=== PATIENT | female | born 1985 | race Caucasian/White ===

== ENCOUNTER 2022-06-30 09:47 | Emergency (ER) | payer OTHER, SELFPAY ==
[2022-06-30 09:48] VITALS: BP 124/103; PULSE 101; RESP 16; TEMP 36.2; O2SAT 100; BMI 29.2
--- NOTE | 2022-06-30 10:19 | EDS_ITS ---
HPI History of Present Illness Chief Complaint: Numb/Ting Detail of Chief Complaint: Right facial tingling Informant: patient Onset/Context/Timing Onset: Days Context: Gradual Onset Timing: Continuous Current Severity: Mild Maximum Severity: Mild Narrative Narrative: 33-year-old female no seen past medical or surgical history. States she has had right facial tingling for the last 3 to 4 days. Began on Wednesday. Denies headache. Denies trauma. Denies any weakness or numbness to her upper or lower extremities. No visual changes. No facial droop. No other neurological symptoms. Prior similar symptoms: No Recent Illness/Hospitalization: No PFSH PFSH Medical History no medical history no medical history Allergy/AdvReac Type Severity Reaction Status Date / Time cephalexin monohydrate Allergy Hives Verified 06/30/22 09:48 [From Keflex] sulfamethoxazole Allergy Hives Verified 06/30/22 09:48 [From Bactrim] trimethoprim [From Bactrim] Allergy Hives Verified 06/30/22 09:48 Surgical History no surgical history no surgical history Social History Smoking Status: Current some day smoker tobacco type: cigarettes ROS ROS ED ROS Narrative Denies recent illness. Review of Systems ROS Unobtainable: Denies due to encephalopathy Constitutional Constitutional ED: Denies chills or fever(s) Eyes Eyes: Denies blurry vision ENT ENT ED: Denies ear pain Cardiovascular Cardiovascular: Denies chest pain Respiratory/Chest Respiratory/Chest: Denies cough or dyspnea Gastrointestinal Gastrointestinal: Denies abdominal pain Genitourinary Genitourinary ED: Denies dysuria or hematuria Musculoskeletal Musculoskeletal: Denies arthralgias Integumentary Denies abscess Neurologic Neurologic: Reports paresthesias; Denies headache(s) Psychiatric Psychiatric: Denies anxiety Endocrine Endocrinology: Denies cold intolerance Hematologic/Lymphatic Hematologic/Lymphatic: Reports none Allergic/Immunologic Allergic/Immunologic ED: Denies mouth swelling or tongue swelling EXAM Physical Exam Narrative Exam Narrative: Well-appearing 37-year-old female no acute distress. Vital signs stable afebrile. H EENT exam unremarkable. Give dry reactive light his motions are intact. Tongue midline. No facial droop. She has sensation to the right and left side of her forehead and face and she states that subjectively decreased on the right. There is no facial droop. She can open and close either eye without any difficulty. There are no objective neurological findings involving the motor nerves of her face. Neck nontender. Lungs are clear. Heart regular rhythm. Abdomen soft nontender. Moving all 4 extremities. Back nontender. Neurologic exam normal other than subjective decreased sensation right side of her face. No droop. NIH score is 0 to at most 1. Const Vital Signs: 06/30/22 09:48 Temperature 97.2 F L Temperature Source Temporal Pulse Rate 101 H Respiratory Rate 16 Blood Pressure 124/103 H Blood Pressure Mean 110 Pulse Ox 100 Oxygen Delivery Method Room Air Positive well nourished and well developed; Negative for obese, cachectic, contractures or unkempt General Appearance ED: well developed and NAD; Negative for unkempt, cachectic, contractures, cyanotic or diaphoretic Nutritional Appearance: Negative for cachectic or obese HEENT Reports moist mucous membranes Negative for trauma or tenderness Eyes PERRL and EOMs intact bilaterally General Eye ED: Negative for pale conjunctiva or scleral icterus Neck no lymphadenopathy, supple and no JVD General: Negative for tenderness Lymph Lymphatic: Negative for other Chest Wall inspection of chest normal and palpation of chest normal Chest: Negative for other Resp normal respiratory effort and clear to auscultation bilaterally Effort and Inspection: Negative for retractions Auscultation: Negative for rales or rhonchi Cardio regular rate, regular rhythm, S1 normal heart sound, S2 normal heart sound and no murmurs Palpation: Negative for palpable S3 Rate: Negative for bradycardia Rhythm: Negative for abnormal rhythm GI normal to inspection, nondistended, normoactive bowel sounds, non-tender, non- distended and no masses Inspection: Negative for abdominal distention Auscultation: normoactive bowel sounds Palpation: soft; Negative for tender or guarding Back/Spine no CVA tenderness General Back: Negative for CVA tenderness Cervical Spine: Negative for cervical spine tenderness Thoracic Spine / Upper Back: Negative for thoracic spinal tenderness Lumbar Spine / Lower Back: Negative for lumbar spinal tenderness Extremity normal to inspection Neuro oriented x3, CN's II-XII intact bilaterally and no sensory deficits noted Neuro Narrative: Subjective decrease sensation right forehead and face. She objectively is able to feel touch. There is no droop or motor loss. Sensorium / Orientation: alert; Negative for orientation impaired, lethargic or stuporous Motor Exam: strength 5/5 throughout; Negative for general weakness or strength abnormal Psych mental status grossly normal Appearance: Negative for unkempt Attitude: No agitated Mood & Affect: Negative for depressed, anxious or tearful Skin no rashes or lesions noted and no wounds Lesions: No lesion noted Rashes: No rashes noted Trauma: Negative for abrasion Wounds: Negative for wounds noted MDM MDM MDM Narrative Medical decision making narrative: 37-year-old female subjective decrease sensation right forehead and face. Exam completely normal otherwise. She and I discussed the CAT scan which clinic I think will be normal. I did give her the option if she wanted me to obtain and she deferred at this time. She will given a primary care physician to follow-up with. Radiography Diagnostic Testing: Discussed with the patient CAT scan of her head which she deferred at this time. Clinically I think it would be normal. Discharge Plan Triage Chief Complaint: Numb/Ting ED Provider: Salvatore Caldeorn Dx/Rx/DC Orders Clinical Impression: Facial paresthesia Instructions: ED Paraesthesias Primary Care Provider: Care Physician,No Primary Referrals: Rafael Yo MD [Med Staff - [employer]] - As soon as possible Care Physician,No Primary [Primary Care Provider] - Activity Restrictions/Additional Instructions: Amputation follow-up with your doctor if not improving return if worse. Your exam currently is normal. Disposition Disposition: Home, Self Care
== END 2022-06-30 10:35 | disposition home or self-care (01) ==
LOC: ED 10:33
PROVIDERS: Emergency Provider Emergency Medicine; Visit Provider Emergency Medicine
DX: R20.2 Paresthesia of skin (principal); F17.210 Nicotine dependence, cigarettes, uncomplicated
CPT/HCPCS: 99282

== ENCOUNTER → 2022-07-01 | Outpatient (CLI) | payer OTHER, SELFPAY ==
--- NOTE | 2022-07-01 14:29 | RAD_ITS ---
STUDY: X-RAY - LUMBAR SPINE REASON FOR EXAM: Female, 37 years old. FACET ARTHROPATHY TECHNIQUE: XR Spine Lumbar 2 or 3 Views COMPARISON: None FINDINGS: Normal lumbar lordosis. There is no substantial scoliosis. There is a normal alignment of the vertebrae. There is L5-S1 endplate spondylosis of the lumbar vertebrae. There is L5-S1 degenerative disc disease with disc space narrowing. There are bilateral tubal ligation clips. The soft tissue structures are unremarkable. RAD/Lumbar Spine 2 or 3 Views IMPRESSION: Degenerative findings at L5-S1. Electronically Signed: Cristhian Murphy MD at 21:21 EST ,
== END | disposition home or self-care (01) ==
LOC: MTRAD 14:22
PROVIDERS: Referring Provider Family Medicine; Visit Provider Family Medicine
DX: M47.819 Spondylosis without myelopathy or radiculopathy, site unspecified (principal)
CPT/HCPCS: 72100